=== PATIENT | female | born 1985 | race Caucasian/White ===

== ENCOUNTER 2019-04-01 11:38 | Emergency (ER) | payer MEDICAID ==
[~2019-04-01] VITALS: Ht 172.7 cm; Wt 90.0 kg
[2019-04-01] MEDS ORDERED: TRAM50TA2 PO (13:10)
[2019-04-01] MEDS ORDERED: PENI500T2 PO (13:10)
[2019-04-01 13:16] VITALS: BP 159/97
== END 2019-04-01 13:22 | disposition home or self-care (01) ==
LOC: ER 11:39
DX: R03.0 Elevated blood-pressure reading, without diagnosis of hypertension (principal); K08.89 Other specified disorders of teeth and supporting structures; Z79.899 Other long term (current) drug therapy
CPT/HCPCS: 99283

== ENCOUNTER 2023-07-24 21:15 | Emergency (ER) | payer MEDICAID ==
[~2023-07-24] VITALS: Ht 170.2 cm; Wt 104.5 kg
[2023-07-24 21:18] VITALS: BP 136/93; PULSE 130; RESP 18; TEMP 98; O2SAT 95
== END 2023-07-24 22:00 | disposition home or self-care (01) ==
LOC: ER 21:15
DX: F10.129 Alcohol abuse with intoxication, unspecified (principal); V87.7XXA Person injured in collision between other specified motor vehicles (traffic), initial encounter; Y99.8 Other external cause status; Y93.89 Activity, other specified; Y92.89 Other specified places as the place of occurrence of the external cause; Y90.9 Presence of alcohol in blood, level not specified
CPT/HCPCS: 99283